=== PATIENT | male | born 1940 | race Caucasian/White ===

== ENCOUNTER 2017-07-11 10:48 | Emergency (ER) | payer OTHER ==
[~2017-07-11] VITALS: Ht 165.1 cm; Wt 73.3 kg
[~2017-07-11 10:48] MED LIST: ACTOS45 MG PO; ADVAIR 250/501 DISK IH; AMBIEN10 MG PO; AMBIEN5 MG PO; AMOX TR-K CLV1 EAC4 PO; ASPIRIN81 M1 PO; ATORVASTATIN CA40 MG PO; ATROVENT 00.5 MG/2.5 IH; AVODART0.5 MG PO; BENTYL10 MG PO; BIOTIN PLUS KE1 EACH PO; CARAFATE1 GM PO; CELEXA20 MG PO; CILOSTAZOL100 MG PO; CITALOPRAM HBR20 MG PO; CO Q-10100 MG PO; COZAAR100 MG PO; DAILY VALUE1 EACH PO; DEXILANT60 MG PO; DILAUDID2 MG PO; DIOVAN160 MG PO; DUONEB 2.5-0.5 M3 ML IH; FENOFIBRATE160 M1 PO; FENOFIBRATE160 MG PO; FLOMAX0.4 MG PO; GABAPENTIN300 MG PO; IMDUR30 MG PO; INDOMETHACIN25 MG PO; ISOSORBIDE MONO30 MG PO; KEFLEX500 MG PO; LEVAQUIN750 MG PO; LEXAPRO20 MG PO; LIPITOR20 MG PO; LIPITOR40 MG PO; LO-DOSE ASPIRIN81 M1 PO; MEGA MULTI FOR1 EAC1 PO; MEGA RED PO; METAMUCIL POWD798 GM PO; METFORMIN HCL500 MG PO; METOPROLOL SUCC50 MG PO; METOPROLOL TART50 MG PO; METRONIDAZOLE45 G1 TP; MULTIVITAMIN1 EAC2 PO; Metamucil PO; NASONEX17 GM BOTH NARES; NASONEX17 GM NS; NEXIUM40 MG PO; NICODERM CQ1 EAC1 TD; NITROSTAT0.4 MG SL; PERCOCET 5/31 TABLET PO; PLETAL100 MG PO; PREDNISONE20 MG PO; ROSADAN45 G1 TP; SPIRIVA1 INHALATI IH; SUCRALFATE1 GM PO; TOPROL XL50 MG PO; TRAMADOL HCL50 MG PO; [UNRECOGNIZED DRUG - OTHER] PO
[2017-07-11 11:24] LABS: BASOPHIL COUNT 0.1 K/uL (0-0.1); EOSINOPHIL COUNT 0.1 K/uL (0-0.3); HEMATOCRIT 41.4 % (38.0-50.0); IMMATURE GRANULOCYTE (%) 0.5 % (0.0-0.7); IMMATURE GRANULOCYTE COUNT 0.1 K/uL; INSTRUMENT ABS NEUTROPHIL CT 6.8 K/uL; LYMPHOCYTE COUNT 1.5 K/uL (1.0-2.8); MCH 29.8 PG (29.0-34.0); MCHC 35.5 G/DL (30.0-36.0); MONOCYTE (%) 10.7 % (3-12); NEUTROPHIL (%) 71.7 % (45-76); NEUTROPHIL COUNT 6.8 K/uL (1.8-6.4); PLATELET COUNT 219 K/uL (156-360); RBC DIS.WIDTH-CV 17.9 % (11.8-14.6); RBC DIS.WIDTH-SD 54.4 % (39-53); RED BLOOD COUNT 4.93 M/uL (4.00-5.50); WHITE BLOOD COUNT 9.5 K/uL (4.1-10.2)
[2017-07-11] MEDS ORDERED: BUSPAR10 MG PO (11:24)
[2017-07-11] MEDS ORDERED: BUSPAR5 MG PO (11:24)
[2017-07-11] MEDS ORDERED: ARICEPT5 MG PO (11:27)
[2017-07-11 11:34] LABS: CHLORIDE 101 mEq/L (99-109); POTASSIUM 4.4 mEq/L (3.7-5.4); SODIUM 132 mEq/L (136-147)
[2017-07-11 11:36] LABS: GLUCOSE 128 mg/dL (70-99)
[2017-07-11 11:37] LABS: ANION GAP 16 MEQ/L (2-14)
[2017-07-11 11:40] LABS: GFR ESTIMATE (CALCULATED) > 59 mL/min/; UREA NITROGEN (BUN) 8 mg/dL (9-23)
[2017-07-11 11:45] LABS: TROP-I INTERPRETATION NEGATIVE; TROPONIN-I < 0.01 ng/mL (0.0-0.30)
[2017-07-11] MEDS ORDERED: ZITHROMAX Z-PA250 MG PO (13:28)
[2017-07-11] MEDS ORDERED: PREDNISONE50 MG PO (13:28)
[2017-07-11 13:40] VITALS: BP 159/91
== END 2017-07-11 13:40 | disposition home or self-care (01) ==
LOC: EME 10:48
PROVIDERS: Emergency Medicine
DX: J44.1 Chronic obstructive pulmonary disease with (acute) exacerbation (principal); J40 Bronchitis, not specified as acute or chronic; R19.7 Diarrhea, unspecified; I10 Essential (primary) hypertension; E78.5 Hyperlipidemia, unspecified; E11.9 Type 2 diabetes mellitus without complications; Z79.84 Long term (current) use of oral hypoglycemic drugs; Z90.49 Acquired absence of other specified parts of digestive tract; Z95.1 Presence of aortocoronary bypass graft; Z95.0 Presence of cardiac pacemaker; F17.200 Nicotine dependence, unspecified, uncomplicated
CPT/HCPCS: 71010; 80048; 83880; 84484; 85025; 93005; 94640; 99281; 99285; J2930

== ENCOUNTER 2017-09-25 10:16 | Emergency (ER) | payer OTHER ==
[~2017-09-25] VITALS: Ht 165.1 cm; Wt 70.8 kg
[~2017-09-25 10:16] MED LIST changes: +ARICEPT5 MG PO; +BUSPAR10 MG PO; +BUSPAR5 MG PO; +PREDNISONE50 MG PO; +ZITHROMAX Z-PA250 MG PO
[2017-09-25 10:20] VITALS: BP 141/67
[2017-09-25] MEDS ORDERED: ULTRAM50 MG PO (12:03)
== END 2017-09-25 12:33 | disposition home or self-care (01) ==
LOC: EME 10:16
DX: S20.211A Contusion of right front wall of thorax, initial encounter (principal); W01.0XXA Fall on same level from slipping, tripping and stumbling without subsequent striking against object, initial encounter; E78.5 Hyperlipidemia, unspecified; I10 Essential (primary) hypertension; J44.9 Chronic obstructive pulmonary disease, unspecified; K21.9 Gastro-esophageal reflux disease without esophagitis; E11.9 Type 2 diabetes mellitus without complications; F17.200 Nicotine dependence, unspecified, uncomplicated; Z98.84 Bariatric surgery status; Z88.6 Allergy status to analgesic agent; Z91.041 Radiographic dye allergy status
CPT/HCPCS: 71100; 99281; 99284

== ENCOUNTER → 2017-11-01 | Outpatient (CLI) | payer OTHER ==
[~2017-11-01] MED LIST changes: +ULTRAM50 MG PO
== END | disposition home or self-care (01) ==
LOC: NUC 06:51
DX: R11.0 Nausea (principal); R19.7 Diarrhea, unspecified; R63.4 Abnormal weight loss
CPT/HCPCS: 78264; A9541